=== PATIENT | female | born 1990 | race Caucasian/White ===

== ENCOUNTER 2017-11-20 17:18 | Inpatient (IN) | payer OTHER ==
[~2017-11-20] VITALS: Ht 175.3 cm; Wt 103.9 kg
[2017-11-20] MEDS ORDERED: PRENATAL TABLE1 EAC1 PO (18:22)
[2017-11-20] MEDS ORDERED: SYNTHROID137 MCG PO (18:23)
[2017-11-20] MEDS ORDERED: SYNTHROID50 MCG PO (18:24)
[2017-12-15] MEDS ORDERED: PERCOCET 5-3251 EACH PO (14:42)
[2017-12-16] MEDS ORDERED: PERCOCET 5-3251 EACH PO (06:22)
[2017-12-16] MEDS ORDERED: SURFAK240 M1 PO (06:22)
== END 2017-12-16 15:01 | DRG 766 ==
LOC: LDR 17:18 → OB/GYN 17:18
PROVIDERS: Obstetrics & Gynecology
PROC: 4A1HXCZ Monitoring of Products of Conception, Cardiac Rate, External Approach (ICD-10-PCS; 2017-11-20)
PROC: BY4FZZZ Ultrasonography of Third Trimester, Single Fetus (ICD-10-PCS; 2017-11-25)
PROC: 10D00Z1 Extraction of Products of Conception, Low, Open Approach (ICD-10-PCS; principal; 2017-12-14 11:00)
DX: O60.14X0 Preterm labor third trimester with preterm delivery third trimester, not applicable or unspecified (principal); O64.1XX0 Obstructed labor due to breech presentation, not applicable or unspecified; Z3A.36 36 weeks gestation of pregnancy; Z37.0 Single live birth